=== PATIENT | female | born 1935 | race Asian ===

== ENCOUNTER → 2018-03-12 | Outpatient (CLI) | payer MEDICARE ==
--- NOTE | 2018-03-12 10:15 | RAD ---
DATE: 03/22/2018 EXAM: MAMMO JIMBO SCREENING BILATERAL HISTORY: Routine screening COMPARISON: 02/24/2016 This study was interpreted with the benefit of Computerized Aided Detection (CAD). The breast parenchyma is heterogeneously dense, which could reduce sensitivity of mammography. Breast parenchyma level C. FINDINGS: 2-D and 3-D tomosynthesis imaging was performed in CC and MLO projections. No new or enlarging breast densities are seen. Benign type calcifications are present. No suspicious microcalcifications have developed. IMPRESSION: There is no mammographic evidence of malignancy in either breast. BI-RADS CATEGORY: 2 BENIGN FINDING(S) RECOMMENDED FOLLOW-UP: 12M 12 MONTH FOLLOW-UP PQRS compliance statement: Patient information was entered into a reminder system with a target due date for the next mammogram. Mammography is a sensitive method for finding small breast cancers, but it does not detect them all and is not a substitute for careful clinical examination. A negative mammogram does not negate a clinically suspicious finding and should not result in delay in biopsying a clinically suspicious abnormality. "Our facility is accredited by the [employer] Mammography Program."
--- NOTE | 2018-03-13 10:48 | RAD ---
EXAM: Dual energy x-ray absorptiometry (DEXA). HISTORY: Postmenopausal female presents for osteoporosis screening. COMPARISON: None. TECHNIQUE: Dual energy x-ray absorptiometry of the lumbar spine and right hip was performed. Calculation of bone mineral density based on standard deviations above or below the expected young adult normal value (T-score) was completed. FINDINGS: The average bone mineral density in the 1st through 4th lumbar vertebrae is 0.998 g/cmxcm, corresponding with a T-score of -1.5. The average total bone mineral density in the right hip is 0.820 g/cmxcm, corresponding with a T-score of -1.5. IMPRESSION: Osteopenia measured at the lumbar spine and right hip. Note: Definitions established by the World Health Organization: 1. Normal: T-score is -1.0 or above. 2. Osteopenia: T-score is between -1.0 and -2.5 . 3. Osteoporosis: T-score is -2.5 or below. Electronically signed by: Judy Santiago MD (03/13/2018 10:45 AM) [facility]
== END | disposition home or self-care (01) ==
LOC: MAMMO 08:11
PROVIDERS: ATTEND Nurse Practitioner Family
DX: Z12.31 Encounter for screening mammogram for malignant neoplasm of breast (principal); Z13.820 Encounter for screening for osteoporosis; M85.80 Other specified disorders of bone density and structure, unspecified site; Z78.0 Asymptomatic menopausal state
CPT/HCPCS: 77063; 77067; 77080

== ENCOUNTER 2021-06-12 19:51 | Inpatient (IN) | payer MEDICARE ==
[~2021-06-12] VITALS: Ht 157.5 cm; Wt 49.7 kg
[2021-06-12 20:52] LABS: BASO # 0.1 x10^3/uL (0.0-0.2); BASO % 1 % (0-3); EOS % 14 % (0-3); HEMATOCRIT 36.7 % (36.0-47.0); HEMOGLOBIN 12.4 g/dL (12.0-15.5); LYMPH # 2.8 x10^3/uL (1.0-4.8); LYMPH % 37 % (24-48); MEAN CORPUSCULAR HEMOGLOBIN 30 pg (25-35); MEAN CORPUSCULAR HGB CONC 34 g/dL (31-37); MEAN CORPUSCULAR VOLUME 88 fL (79-100); MONO # 0.8 x10^3/uL (0.0-1.1); MONO % 10 % (0-9); NEUT # 2.8 x10^3uL (1.8-7.7); NEUT % 38 % (31-73); PLATELET COUNT 337 x10^3/uL (140-400); RED BLOOD COUNT 4.18 x10^6/uL (3.50-5.40); RED CELL DISTRIBUTION WIDTH 13.7 % (11.5-14.5); WHITE BLOOD COUNT 7.5 x10^3/uL (4.0-11.0)
--- NOTE | 2021-06-12 20:55 | PHYS DOC ---
Past History Past Surgical History: Pacemaker, Other Additional Past Surgical Histo: RIGHT KNEE, CYST ON LEFT HIP, GLAUCOMA, CATARACTS General Adult EDM: Chief Complaint: CHEST PAIN HPI: HPI: Patient is a 86-year-old female who presents with intermittent, chest pressure for the last 2 days. "when I was sleeping last night, the chest pressure woke me up about 9pm and its been constant". "I was also sleeping when all of a sudden I started having upper back pain and I felt very tired lately". Denies nausea, vomiting, sob. Chest pressure stayed on the right side of her chest without radiation. History of HTN,pacemaker. Review of Systems: Review of Systems: Constitutional: Denies fever or chills Eyes: Denies change in visual acuity HENT: Denies nasal congestion or sore throat Respiratory: Denies cough or shortness of breath Cardiovascular: Reports constant , right sided, chest pressure GI: Denies abdominal pain, nausea, vomiting, bloody stools or diarrhea : Denies dysuria Musculoskeletal: Reports back pain between shoulder blades, denies joint pain Integument: Denies rash Neurologic: Denies headache, focal weakness or sensory changes Endocrine: Denies polyuria or polydipsia Lymphatic: Denies swollen glands Psychiatric: Denies depression or anxiety Allergies: Allergies: Allergies Coded Allergies Type Severity Reaction Last Updated Verified No Known Drug Allergies 06/12/21 No Physical Exam: PE: Constitutional: Well developed, well nourished, no acute distress, non-toxic appearance. HENT: Normocephalic, atraumatic, bilateral external ears normal, oropharynx moist, no oral exudates Eyes: PERRLA, EOMI, conjunctiva normal, no discharge. Neck: Normal range of motion, no tenderness, supple, no stridor. Cardiovascular:Heart rate regular rhythm, no murmur Lungs & Thorax: Bilateral breath sounds clear to auscultation Abdomen: Bowel sounds normal, soft, no tenderness, no masses, no pulsatile masses. Skin: Warm, dry, no erythema, no rash. Back: No tenderness, no CVA tenderness. Extremities: No tenderness, no cyanosis, no clubbing, ROM intact, no edema. Neurologic: Alert and oriented X 3, normal motor function, normal sensory f unction, no focal deficits noted. Psychologic: Affect normal, judgement normal, mood normal. Current Patient Data: Vital Signs: Vital Signs Date Time Temp Pulse Resp B/P (MAP) Pulse Ox O2 Delivery O2 Flow Rate FiO2 06/12/21 20:05 98.0 65 20 100/56 98 Room Air EKG: EKG: Abnormal EKG. Suspicious for recent ST elevation heart rate 65 bpm. [] Radiology/Procedures: Radiology/Procedures: []EXAM: PA and Lateral Views of the Chest DATE: 06/12/2021 8:24 PM INDICATION: Reason: chest pressure / Spl. Instructions: / History: COMPARISON: No Prior FINDINGS: Cardiac generator pack obscures a portion of the left chest with leads projectin g over the right atrium and ventricle. The heart is not enlarged. Mediastinal and hilar contours are normal. Emphysematous changes are seen. No lobar consolidation. No pleural effusion or pneumothorax. Vascular calcifications are seen in the upper abdomen. IMPRESSION: Emphysematous changes are seen. No lobar consolidation. Electronically signed by: Elmer Bianchi MD (06/12/2021 9:42 PM) [facility] Heart Score: C/O Chest Pain: Yes HEART Score for Chest Pain: HEART Score for Chest Pain Response (Comments) Value History Moderately Suspicious 1 ECG Normal 0 Age > 65 2 Risk Factors 1 or 2 Risk Factors 1 Troponin >1-<3x Normal Limit 1 Total 5 Risk Factors: Risk Factors: DM, Current or recent (<one month) smoker, HTN, HLP, family history of CAD, obesity. Risk Scores: Score 0 - 3: 2.5% MACE over next 6 weeks - Discharge Home Score 4 - 6: 20.3% MACE over next 6 weeks - Admit for Clinical Observation Score 7 - 10: 72.7% MACE over next 6 weeks - Early Invasive Strategies Course & Med Decision Making: Course & Med Decision Making Pertinent Labs and Imaging studies reviewed. (See chart for details) [] 86-year-old female who presents with intermittent, chest pressure for the last 2 days. Patient states that pressure woke her up out of her sleep last night and has been constant ever since. Patient is also reporting some fatigue and back pain. Patient has a history of hypertension and pacemaker. Troponins elevated at 0.092. BNP 1238. EKG is abnormal, no EKG for comparison. EKG is concerning for possible recent ST elevation. Cardiology at [place] was consulted to discuss EKG results. Patient is currently seeing Dr. Quick. Discussed results with family made them aware that we would most likely have to transport patient to a higher level of care. Patient given 324 of aspirin. Heparin bolus and drip started. Spoke with Dr. Quick who was able to view EKG. Dr. Quick feels the patient is appropriate to be seen at [facility]. I spoke with Dr. Mendoza who will be admitting patient. Serial enzymes were ordered and cardiology consult was placed. Discussed plan with family. Family is appreciative and okay with admission plan. Patient is hemodynamically stable upon admission. Dragon Disclaimer: Dragon Disclaimer: This electronic medical record was generated, in whole or in part, using a voice recognition dictation system. Departure Departure: Impression: Primary Impression: Chest pain, rule out acute myocardial infarction Additional Impressions: Elevated troponin Fatigue Qualified Codes: R53.83 - Other fatigue Disposition: ADMITTED INPATIENT Admitting Physician: Yannick Mendoza Condition: STABLE Referrals: ENRIKE PETERS MD (PCP) NISHANT BAEZ INCUBATOR OPERATOR Jun 12, 2021 20:55
[2021-06-12 21:03] LABS: CALCIUM 9.1 mg/dL (8.5-10.1); CREATININE 0.8 mg/dL (0.6-1.0); GFR 68.2; POTASSIUM 3.7 mmol/L (3.5-5.1)
[2021-06-12 21:16] LABS: ALBUMIN 3.6 g/dL (3.4-5.0); ALBUMIN/GLOBULIN RATIO 1.1 (1.0-1.7); MAGNESIUM 2.3 mg/dL (1.8-2.4); TOTAL BILIRUBIN 0.3 mg/dL (0.2-1.0); TOTAL PROTEIN 6.8 g/dL (6.4-8.2)
[2021-06-12] MEDS ORDERED: ASPIRIN CHEWABLE 81 MG TABLET. PO ONE (21:30)
--- NOTE | 2021-06-12 21:44 | RAD ---
EXAM: PA and Lateral Views of the Chest DATE: 06/12/2021 8:24 PM INDICATION: Reason: chest pressure / Spl. Instructions: / History: COMPARISON: No Prior FINDINGS: Cardiac generator pack obscures a portion of the left chest with leads projecting over the right atri um and ventricle. The heart is not enlarged. Mediastinal and hilar contours are normal. Emphysematous changes are seen. No lobar consolidation. No pleural effusion or pneumothorax. Vascular calcifications are seen in the upper abdomen. IMPRESSION: Emphysematous changes are seen. No lobar consolidation. Electronically signed by: Elmer Bianchi MD (06/12/2021 9:42 PM) [facility]
[2021-06-12] MEDS ORDERED: methylPREDNISolone SOD SUCC PF 125 MG/2 ML VIAL. IV PRN (21:45)
[2021-06-12] MEDS ORDERED: diphenhydrAMINE 50 MG/ML VIAL IVP PRN (21:45)
[2021-06-12] MEDS ORDERED: HEPARIN 25,000UTS/250ML PREMIX 250 ML IV PRN (21:45)
[2021-06-12] MEDS ORDERED: HEPARIN for IV BOLUS 10,000 UNIT/10 ML VIAL. IV ONE (21:45)
[2021-06-12] MEDS ORDERED: FAMOTIDINE 20 MG/2 ML VIAL IVP PRN (21:45)
[2021-06-12 22:09] LABS: BILIRUBIN,URINE NEG (NEG); CLARITY,URINE CLEAR; COLOR,URINE YELLOW; GLUCOSE,URINE NEG (NEG); NITRITE,URINE NEG (NEG)
[2021-06-12 22:11] LABS: BACTERIA,URINE 0 /HPF (0-FEW); SQUAMOUS EPITHELIAL CELL,UR FEW /LPF
[2021-06-13 00:29] VITALS: BP 143/74
--- NOTE | 2021-06-13 00:34 | NUR ---
The patient, BERINCE LOREDO, 86 y/o, F admitted by BOWEN MURRAY MD, was given written information regarding hospital policies, unit procedures and contact persons. Valuables were checked and left with patient. Oriented to unit and room; call light within reach.
--- NOTE | 2021-06-13 00:45 | NUR ---
Notified of pt arrival; received order to d/c Heparin drip; pt resting with eyes closed, states "feeling better"; telemetry shows 100% paced rhythm; no voiced needs or concerns at this time.
[2021-06-13 05:53] VITALS: BP 129/70
[2021-06-13] MEDS ORDERED: LEVO5TAB2 PO (06:13)
[2021-06-13] MEDS ORDERED: TIMO5DRO26 OS (06:13)
[2021-06-13] MEDS ORDERED: ZOLP5TAB5 PO (06:13)
[2021-06-13] MEDS ORDERED: LOSA1TAB25 PO (06:13)
[2021-06-13] MEDS ORDERED: METO50TA29 PO (06:13)
[2021-06-13] MEDS ORDERED: POTA10TA5 PO (06:13)
[2021-06-13] MEDS ORDERED: ISOS30TA68 PO (06:13)
[2021-06-13] MEDS ORDERED: LATA7.5D OU (06:13)
[2021-06-13] MEDS ORDERED: CIME200T6 PO (06:13)
[2021-06-13] MEDS ORDERED: AMLO-187 PO (06:13)
[2021-06-13] MEDS ORDERED: TIMO5SOL9 OD (06:13)
--- NOTE | 2021-06-13 06:15 | NUR ---
No further c/o chest pain/pressure this night; VSS; telemetry shows 100% paced rhythm with rate 62-65/min; denies SOA; ambulates with standby assist to restroom; resting at present with no voiced needs or concerns at this time.
--- NOTE | 2021-06-13 06:38 | EKG ---
[address] [address] Test Date: 2021-06-12 Test Time: 20:15:08 Pat Name: BERNICE LOREDO Department: Room: Gender: F Street[employer] Starter: : [id number] Requested By: NISHANT BAEZ Order Number: [id number] Reading MD: Measurements Intervals [place] Rate: 65 P: -90 PA: 76 QRS: -90 QRSD: 80 T: -28 QT: 446 QTc: 469 Interpretive Statements SUPRAVENTRICULAR RHYTHM COMPLEX(ES) WITH ABERRANT INTRAVENTRICULAR CONDUCTION VENTRICULAR PREMATURE COMPLEX(ES) ABNORMAL LEFT AXIS DEVIATION QRS(T) CONTOUR ABNORMALITY CONSISTENT WITH ANTERIOR INFARCT CONSISTENT WITH INFEROLATERAL INFARCT POSSIBLY RECENT ST-T ELEVATION, CONSIDER ACUTE ANTERIOR INFARCT ST-T ELEVATION, CONSIDER ACUTE INFERIOR INFARCT
--- NOTE | 2021-06-13 10:40 | HP ---
ATTENDING PHYSICIAN: Dr. Mendoza. CHIEF COMPLAINT: Chest pressure. HISTORY OF PRESENT ILLNESS: The patient is a delightful 86-year-old female who is of [place] origin. She has been in this country [place] years. She has a history of heart disease with a permanent pacemaker [address] Quick as her primary truck driving and Dr. Torres as her PCP. For the last several days, she has had chest pressure at rest, intermittent, no pain per se. This pressure woke her up and it has been fairly constant. She was given some aspirin. The EKG was nondiagnostic. Chest x-ray showed clear lung sanchez without any overt decompensation. She has an AV sequential pacemaker in place. Cardiac enzymes were slightly elevated. The first troponin was 0.09, the second one peaked a little bit at 0.105. Dr. Quick was consulted. She was medically stable. There were no arrhythmias or heart failure. She was admitted then to our hospital here for telemetry monitoring, serial enzymes, continuation of her aspirin and beta blockade and eventual workup either a nuclear medicine stress test or a direct cardiac catheterization. He has been consulted and will see her later today. PAST MEDICAL HISTORY: Significant for essential hypertension. She has previous knee surgery. She has a permanent pacemaker. ALLERGIES: She has no known drug allergies. CURRENT MEDICATIONS: Include amlodipine 10 mg daily, cimetidine, isosorbide mononitrate 30 mg daily, latanoprost and Timoptic eye drops, losartan/hydrochlorothiazide, metoprolol, potassium supplementation and zolpidem at bedtime. SOCIAL HISTORY: She is a nonsmoker, nondrinker. FAMILY HISTORY: Her mother of heart disease at age 78. Father also in his 70s of unspecified etiology. She is . She lives with her son here in town. She is still fairly active. She drives a car. She is a very devout to quaker going lady, goes to [employer] every Monday. She drives to [employer] on Sundays and get groceries and limits her activities. She denied any recent COVID exposure. REVIEW OF SYSTEMS: All other systems reviewed and determined to be negative. PHYSICAL EXAMINATION: GENERAL: When I saw her, this is a pleasant female who appears younger than her stated age. INITIAL VITAL SIGNS: Showed a blood pressure of 129/70 mmHg, her pulse was 63 per minute and regular, temperature 97.9 degrees Fahrenheit, oxygen saturation 98% on room air. HEENT: Head is without trauma. Pupils are reactive. Sclerae nonicteric. Oropharynx is clear. NECK: Supple, no bruits identified. LUNGS: Otherwise, clear to auscultation. CARDIOVASCULAR: Showed regular heart tones. No gallops, no murmurs. ABDOMEN: Soft. There is no guarding or rebound tenderness. EXTREMITIES: Show no cyanosis or edema. NEUROLOGIC: Function focally intact. Speech is fluent. SKIN: Warm and dry. PERTINENT LABORATORY STUDIES: Her admission hemoglobin was 12.4 g/dL with a white count of 7500. Electrolytes within normal range. Creatinine 0.8 mg/dL. Nonfasting blood sugar 186. The first cardiac enzymes, the troponin was 0.092, the second one was 0.105. Chest x-ray, permanent pacemaker, mild COPD changes, no acute infiltrates or decompensation. ASSESSMENT: 1. An 86-year-old female with probable non-ST elevation myocardial infarction. 2. History of permanent pacemaker. 3. Essential hypertension. 4. History of cataract. PLAN: 1. Admit to the inpatient unit. 2. Telemetry monitoring. 3. Serial cardiac enzymes. 4. Continue home medications including nitrates, beta blockers and baby aspirin. 5. Formal Cardiology consultation to decide further diagnostic tests. LEXI/BETTYE DR: LEXI/aaron TID: [id number] CC: ENRIKE TORRES MD
[2021-06-13] MEDS ORDERED: HEPARIN 25,000UTS/250ML PREMIX 250 ML IV PRN ×2 (11:00)
[2021-06-13] MEDS ORDERED: HEPARIN for IV BOLUS 10,000 UNIT/10 ML VIAL. IV PRN (11:00)
[2021-06-13] MEDS ORDERED: HEPARIN for IV BOLUS 10,000 UNIT/10 ML VIAL. IV ONE (11:00)
[2021-06-13 11:02] VITALS: BP 137/62
--- NOTE | 2021-06-13 13:06 | PDOC2 ---
CONSULT DOS: DATE: 06/13/21 TIME: 12:59 Reason for Consult: Non-STEMI Referring Physician: Dr. 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 She stated that she had similar episode a month ago when she was visiting her daughter. She stated that the pain radiates to her neck and associated with mild dyspnea but denied any orthopnea/PND, palpitations or syncope. 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 Hypertension Nonobstructive coronary artery disease Glaucoma Past Surgical History Permanent pacemaker implantation Eye surgery Right knee surgery Family History Negative for premature coronary artery disease Social History Patient is a non-smoker and a nondrinker Current Medications Current Medications Aspirin (Aspirin Chewable) 324 mg 1X ONCE PO Last administered on 06/12/21at 21:40; Start 06/12/21 at 21:30; Stop 06/12/21 at 21:35; Status DC Heparin Sodium (Porcine) (Heparin Sodium) 3,000 unit 1X ONCE IV Last administered on 06/12/21at 21:50; Start 06/12/21 at 21:45; Stop 06/12/21 at 21:46; Status DC Heparin Sodium/ Dextrose 250 ml @ 6.012 mls/ hr CONT PRN IV PER PROTOCOL Last administered on 06/12/21at 21:52; Start 06/12/21 at 21:45; Stop 06/13/21 at 00:58; Status DC Diphenhydramine HCl (Benadryl) 50 mg PRN 1X PRN IVP ITCHING; Start 06/12/21 at 21:45; Stop 06/13/21 at 21:44; Status Cancel Famotidine (Pepcid Vial) 20 mg PRN 1X PRN IVP ANGIOEDEMA; Start 06/12/21 at 21:45; Stop 06/13/21 at 21:44; Status Cancel Methylprednisolone Sodium Succinate (SOLU-Medrol 125MG VIAL) 125 mg PRN 1X PRN IV ANGIOEDEMA; Start 06/12/21 at 21:45; Stop 06/13/21 at 21:44; Status Cancel Epinephrine HCl (EPINEPHrine AMPULE) 0.3 mg PRN 1X PRN IM ANAPHYLAXIS; Start 06/12/21 at 21:45; Stop 06/13/21 at 21:44; Status Cancel Aspirin (Chuyita Aspirin) 81 mg DAILYWBKFT PO ; Start 06/14/21 at 08:00 Heparin Sodium/ Dextrose 250 ml @ 0 mls/hr CONT PRN IV SEE I/O RECORD; Start 06/13/21 at 11:00; Stop 06/13/21 at 11:04; Status DC Heparin Sodium/ Dextrose 250 ml @ 6 mls/hr CONT PRN IV SEE I/O RECORD Last administered on 06/13/21at 12:45; Start 06/13/21 at 11:00 Heparin Sodium (Porcine) (Heparin Sodium) 3,000 unit 1X ONCE IV Last administered on 06/13/21at 12:43; Start 06/13/21 at 11:00; Stop 06/13/21 at 11:13; Status DC Heparin Sodium (Porcine) (Heparin Sodium) 1,250 unit PRN Q6HRS PRN IV FOR PTT LESS THAN 24 SECONDS; Start 06/13/21 at 11:00 Active Scripts Active Reported Timolol Maleate 5 Ml Kristina.gel 1 Drop OD BID 30 Days Betimol (Timolol) 5 Ml Drops 1 Drop OS DAILY 30 Days Latanoprost 0.005% Eye Drop (Latanoprost/Pf) 7.5 Ml Drops 1 Drop OU DAILY Cimetidine 200 Mg Tablet 200 Mg PO BID Zolpidem Tartrate 5 Mg Tablet 5 Mg PO PRN QHS PRN Levocetirizine Dihydrochloride 5 Mg Tablet 5 Mg PO DAILY Klor-Con 10 (Potassium Chloride) 10 Meq Tablet.er 1 Tab PO DAILY 30 Days Losartan-Hctz 100-12.5 Mg Tab (Losartan/Hydrochlorothiazide) 1 Each Tablet 1 Tab PO DAILY Amlodipine Besylate 10 Mg Tablet 1 Tab PO DAILY Isosorbide Mononitrate Er (Isosorbide Mononitrate) 30 Mg Tab.er.24h 1 Tab PO DAILY Metoprolol Succinate ( Xl ) (Metoprolol Succinate) 50 Mg Tab.er.24h 1 Tab PO DAILY Allergies: Coded Allergies: No Known Drug Allergies (Unverified , 06/12/21) PSYCHOLOGICAL ROS: No: Hallucinations Eyes: No: Loss of vision HEENT: No: Epistaxis Respiratory: No: Hemoptysis Cardiovascular: yes: Chest Pain Gastrointestinal: No: Vomiting, Diarrhea Neurological: No: Seizures Skin: No: Rash General: Alert, Oriented X3 HEENT: Atraumatic Lungs: Clear to auscultation Heart: Regular rate Abdomen: Soft Extremities: No edema Neuro: Normal speech Psych/Mental Status: Mood NL VITALS Vital Signs Date Time Temp Pulse Resp B/P (MAP) Pulse Ox O2 Delivery O2 Flow Rate FiO2 06/13/21 11:02 97.5 65 20 137/62 (87) 98 Room Air Labs Laboratory Tests Test 06/12/21 20:20 06/12/21 21:15 06/12/21 23:57 06/13/21 03:15 White Blood Count 7.5 x10^3/uL (4.0-11.0) Red Blood Count 4.18 x10^6/uL (3.50-5.40) Hemoglobin 12.4 g/dL (12.0-15.5) Hematocrit 36.7 % (36.0-47.0) Mean Corpuscular Volume 88 fL (79-100) Mean Corpuscular Hemoglobin 30 pg (25-35) Mean Corpuscular Hemoglobin Concent 34 g/dL (31-37) Red Cell Distribution Width 13.7 % (11.5-14.5) Platelet Count 337 x10^3/uL (140-400) Neutrophils (%) (Auto) 38 % (31-73) Lymphocytes (%) (Auto) 37 % (24-48) Monocytes (%) (Auto) 10 % (0-9) Eosinophils (%) (Auto) 14 % (0-3) Basophils (%) (Auto) 1 % (0-3) Neutrophils # (Auto) 2.8 x10^3uL (1.8-7.7) Lymphocytes # (Auto) 2.8 x10^3/uL (1.0-4.8) Monocytes # (Auto) 0.8 x10^3/uL (0.0-1.1) Eosinophils # (Auto) 1.0 x10^3/uL (0.0-0.7) Basophils # (Auto) 0.1 x10^3/uL (0.0-0.2) Prothrombin Time 9.4 SEC (9.4-11.4) Prothromb Time International Ratio 0.9 (0.9-1.1) Activated Partial Thromboplast Time 24 SEC (23-33) Sodium Level 141 mmol/L (136-145) Potassium Level 3.7 mmol/L (3.5-5.1) Chloride Level 103 mmol/L (98-107) Carbon Dioxide Level 31 mmol/L (21-32) Anion Gap 7 (6-14) Blood Urea Nitrogen 20 mg/dL (7-20) Creatinine 0.8 mg/dL (0.6-1.0) Estimated GFR (Cockcroft-Gault) 68.2 BUN/Creatinine Ratio 25 (6-20) Glucose Level 186 mg/dL (70-99) Calcium Level 9.1 mg/dL (8.5-10.1) Magnesium Level 2.3 mg/dL (1.8-2.4) Total Bilirubin 0.3 mg/dL (0.2-1.0) Aspartate Amino Transf (AST/SGOT) 22 U/L (15-37) Alanine Aminotransferase (ALT/SGPT) 22 U/L (14-59) Alkaline Phosphatase 84 U/L (46-116) Creatine Kinase 73 U/L (26-192) Troponin I Quantitative 0.092 ng/mL (0-0.055) 0.105 ng/mL (0-0.055) 0.097 ng/mL (0-0.055) C-Reactive Protein 1.9 mg/L (0-3.3) WT-Uyx-I-Type Natriuretic Peptide 1238 pg/mL (0-449) Total Protein 6.8 g/dL (6.4-8.2) Albumin 3.6 g/dL (3.4-5.0) Albumin/Globulin Ratio 1.1 (1.0-1.7) Urine Collection Type Unknown Urine Color Yellow Urine Clarity Clear Urine pH 7.0 Urine Specific [place] 1.020 Urine Protein Neg (NEG-TRACE) Urine Glucose (UA) Neg mg/dL (NEG) Urine Ketones (Stick) Neg mg/dL (NEG) Urine Blood Neg (NEG) Urine Nitrite Neg (NEG) Urine Bilirubin Neg (NEG) Urine Urobilinogen Dipstick 1.0 mg/dL (0.2 mg/dL) Urine Leukocyte Esterase Trace (NEG) Urine RBC 1-2 /HPF (0-2) Urine WBC 1-4 /HPF (0-4) Urine Squamous Epithelial Cells Few /LPF Urine Bacteria 0 /HPF (0-FEW) Test 06/13/21 11:24 Prothrombin Time 9.4 SEC (9.4-11.4) Prothromb Time International Ratio 0.9 (0.9-1.1) Activated Partial Thromboplast Time 24 SEC (23-33) Assessment/Plan 1. Non-STEMI based on typical chest pain and elevated troponin level. Patient has known history of nonobstructive coronary artery disease. EKG showed paced rhythm. Start heparin infusion per protocol and plan for cardiac catheterization and possible angioplasty at [facility]. Continue beta-blockers and start aspirin. Risks and benefits were explained and she is agreeable. 2. High-grade second-degree AV block s/p permanent pacemaker implantation with recent device check showing normal function with adequate battery life. 3. Hypertension: Controlled Thank you for your consultation NAYDA JOSE MD Jun 13, 2021 13:06
[2021-06-13 14:43] VITALS: BP 150/61
[2021-06-13] MEDS ORDERED: ZOLPIDEM 5 MG TABLET. PO PRN (15:30)
--- NOTE | 2021-06-13 18:01 | NUR ---
Nursing Note Pt waiting on a bed at [facility] for cardiac cath. Pt started on heparin drip today and that continues to run. Pt calm and cooperative.
--- NOTE | 2021-06-13 18:44 | NUR ---
NURSING NOTE PATIENT NEEDS TO ARRIVE AT 9AM FOR CV OP. EMS SCHEDULED FOR 0800. CATH AT 11AM CALL REPORT TO [phone]. MOSES AGUILAR
[2021-06-13 18:54] VITALS: BP 143/65
--- NOTE | 2021-06-13 20:07 | DS ---
DATE OF DISCHARGE: 06/13/2021 FINAL DISCHARGE DIAGNOSES: 1. Non-ST elevation myocardial infarction. 2. History of permanent pacemaker. 3. Essential hypertension. 4. History of cataracts. HISTORY AND PHYSICAL: The patient is a pleasant 86-year-old female with admission to the ED with symptomatic chest pressure, which she describes as heaviness with some associated shortness of breath, felt like somebody was sitting on her chest and not letting go. She had an extensive workup in the ED. The chest x-ray was clear. She does have a permanent pacemaker. She also had positive cardiac enzymes measuring 0.9, 0.10 and repeated was 0.9. She was admitted to the hospital for evaluation, Cardiology evaluation, and management of non-STEMI. PHYSICAL EXAMINATION: Please see my dictated note. PERTINENT LABORATORY AND X-RAY STUDIES: Admission hemoglobin was 12.4 g/dL with a white count of 7500. Electrolytes within normal range. Creatinine 0.8 mg/dL. The first troponin was 0.09, the second one was 0.10, and the third one was 0.097. COURSE IN THE HOSPITAL: The patient was admitted. She was hemodynamically stable. There are no signs of heart failure. We continued her aspirin products, beta blockade, and isosorbide mononitrate. She was seen in consultation by Dr. Quick, her regular caul dresser who recommended a cardiac catheterization. She started heparin per protocol. Home meds were continued and we are in the process of arranging for her to be transferred to [facility] to the hospitalist service with anticipation of cardiac catheterization tomorrow. Therefore, she was transferred with no changes in her meds. She will continue her amlodipine 10 mg daily, cimetidine 200 mg b.i.d., isosorbide mononitrate 30 mg daily, latanoprost eyedrops, levocetirizine, losartan/hydrochlorothiazide daily, metoprolol 50 mg daily, potassium supplementation, timolol eyedrops, and zolpidem at bedtime. In addition, she had a heparin drip per their protocol. The patient was then discharged from our hospital in stable condition, go by ambulance to [facility] for further Cardiology workup and eventual coronary angiograms. ROMINA DR: Vicenta TID: [id number] CC: ENRIKE PETERS MD
[2021-06-13] MEDS: FAMOTIDINE 20 MG TABLET PO SCH (21:00)
[2021-06-13 22:29] VITALS: BP 127/70
[2021-06-14 06:07] VITALS: BP 137/74
[2021-06-14] MEDS: FAMOTIDINE 20 MG TABLET PO SCH (07:45)
[2021-06-14 07:46] VITALS: BP 137/74
[2021-06-14] MEDS ORDERED: ASPIRIN 325 MG TABLET PO SCH (08:00)
--- NOTE | 2021-06-14 08:50 | NUR ---
Nursing note Pt discharged to transfer to [facility] at 830 report called to pending sale to [facility] at 800. pt given written and verbal instructions with verbal statement of understanding received.
[2021-06-14] MEDS ORDERED: LOSARTAN 50 MG TABLET. PO SCH (09:00)
[2021-06-14] MEDS ORDERED: LATANOPROST 0.005% OPHTH SOLUTION 2.5ML BOTTLE. OU SCH (09:00)
[2021-06-14] MEDS ORDERED: POTASSIUM CHLORIDE 10 MEQ TABLET.ER. PO SCH (09:00)
[2021-06-14] MEDS ORDERED: TIMOLOL 0.5% OPHTH SOLUTION 5ML BOTTLE. OS SCH (09:00)
[2021-06-14] MEDS ORDERED: amLODIPine BESYLATE 10 MG TABLET PO SCH (09:00)
[2021-06-14] MEDS ORDERED: METOPROLOL SUCC 24HR ER 50 MG TAB.ER.24H. PO SCH (09:00)
[2021-06-14] MEDS ORDERED: ISOSORBIDE MONONITRATE ER 30 MG TAB.ER.24H PO SCH (09:00)
[2021-06-14] MEDS ORDERED: hydroCHLOROthiazide 12.5 MG CAPSULE PO SCH (09:00)
== END 2021-06-14 08:00 | disposition short-term general hospital (02) | DRG 282 ==
LOC: ER 19:51 → 1 SOUTH 22:42
PROVIDERS: ADMIT Hospitalist; ATTEND Hospitalist
DX: I21.4 Non-ST elevation (NSTEMI) myocardial infarction (principal); I10 Essential (primary) hypertension; I25.10 Atherosclerotic heart disease of native coronary artery without angina pectoris; I44.1 Atrioventricular block, second degree; Z79.899 Other long term (current) drug therapy; Z82.49 Family history of ischemic heart disease and other diseases of the circulatory system; Z95.0 Presence of cardiac pacemaker
CPT/HCPCS: 36415; 71046; 80053; 81001; 82550; 83735; 83880; 84484; 85025; 85610; 85730; 86140; 87086; 93005; 96365; 96375; J1644; 99285-25